=== PATIENT | female | born 1970 | race African-American/Black ===

== ENCOUNTER 2018-10-06 13:50 | Inpatient (IN) | payer OTHER ==
[2018-10-06 13:55] VITALS: BMI 26.6
--- NOTE | 2018-10-06 16:23 | HP ---
CIWA Score Nausea/Vomitin-No Nausea/No Vomiting Muscle Tremors: 4-Moderate,w/Arms Extend Anxiety: 4-Mod. Anxious/Guarded Agitation: 4-Moderately Restless Paroxysmal Sweats: 3 Orientation: 0-Oriented Tacttile Disturbances: 0-None Auditory Disturbances: 0-None Visual Disturbances: 0-None Headache: 0-None Present CIWA-Ar Total Score: 15 - Admission Criteria [facility]ASAS Guidelines: Admission for Medically Managed Detox: Requires at least one of the followin. CIWA greater than 12 2. Seizures within the past 24 hours 3. Delirium tremens within the past 24 hours 4. Hallucinations within the past 24 hours 5. Acute intervention needed for co occurring medical disorder 6. Acute intervention needed for co occurring psychiatric disorder 7. Severe withdrawal that cannot be handled at a lower level of care (continued vomiting, continued diarrhea, abnormal vital signs) requiring intravenous medication and/or fluids 8. Admission ROS S - [facility] Chief Complaint: I need help to stop drinking. Allergies/Adverse Reactions: Allergies Allergy/AdvReac Type Severity Reaction Status Date / Time shellfish derived Allergy Severe Swelling Verified 10/06/18 16:10 History of Present Illness: pt is a 48yr old female with a history of alcohol seeking detox for treatment. pt was sober from 2010 for three years. Pt is now ready to get detox and get clean. Exam Limitations: Physical Impairment (uses wheelchair for ambulating. pt has difficulty with walking.pt has her own wheelchair.) - Ebola screening Have you traveled outside of the country in the last 21 days: No (N) Have you had contact with anyone from an Ebola affected area: No Have you been sick,other than usual withdrawal symptoms: No Do you have a fever: No - Review of Systems Constitutional: Chills, Diaphoresis, Night Sweats, Changes in sleep EENT: reports: Tearing, Nose Congestion, Sinus Pressure Respiratory: reports: No Symptoms reported Cardiac: reports: Syncope GI: reports: Constipated, Poor Appetite, Poor Fluid Intake, Indigestion : reports: No Symptoms Reported Musculoskeletal: reports: Back Pain, Joint Pain, Muscle Pain Integumentary: reports: Flushing, Sweating Neuro: reports: Headache, Tingling, Tremors Endocrine: reports: Excessive Sweating, Flushing, Intolerance to Cold, Intolerance to Heat Hematology: reports: No Symptoms Reported Psychiatric: reports: Judgement Intact, Mood/Affect Appropiate, Orientated x3, Agitated, Anxious Other Systems: Reviewed and Negative Patient History - Patient Medical History Hx Anemia: No Hx Asthma: No Hx Chronic Obstructive Pulmonary Disease (COPD): No Hx Cancer: No Hx Cardiac Disorders: No Hx Congestive Heart Failure: No Hx Hypertension: No Hx Hypercholesterolemia: No Hx Pacemaker: No HX Cerebrovascular Accident: No Hx Seizures: No Hx Dementia: No Hx Diabetes: No Hx Gastrointestinal Disorders: Yes (acid reflux.) Hx Liver Disease: No Hx Genitourinary Disorders: No Hx Sexually Transmitted Disorders: No Hx Renal Disease (ESRD): No Hx Thyroid Disease: No Hx Human Immunodeficiency Virus (HIV): No Hx Hepatitis C: No Hx Depression: No Hx Suicide Attempt: No (denies) Hx Bipolar Disorder: No Hx Schizophrenia: No - Patient Surgical History Past Surgical History: Yes Hx Section: Yes (x1) - PPD History Previous Implant?: Yes Documented Results: Negative w/o proof Implanted On Prior [facility] Admission?: No PPD to be Administered?: Yes - Reproductive History Patient is a Female of Child Bearing Age (11 -55 yrs old): Yes Patient : No - Smoking Cessation Smoking history: Current every day smoker Have you smoked in the past 12 months: Yes Aproximately how many cigarettes per day: 4 Hx Chewing Tobacco Use: No Initiated information on smoking cessation: Yes 'Breaking Loose' booklet given: 10/06/18 - Substance & Tx. History Hx Alcohol Use: Yes Hx Substance Use: Yes Substance Use Type: Alcohol, Cocaine Hx Substance Use Treatment: Yes (last detox <5yrsa ago) - Substances Abused Alcohol Route: Oral Frequency: Daily Amount used: 7 cans beer/ fifth of liquor Age of first use: 20 Date of Last Use: 10/06/18 Crack Route: Smoking Frequency: Daily Amount used: 4 bags Age of first use: 46 Date of Last Use: 10/05/18 Family Disease History - Family Disease History Family History: Denies Admission Physical Exam [facility] - Vital Signs Vital Signs: Vital Signs - 24 hr 10/06/18 13:51 Temperature 98.2 F Pulse Rate 110 H Respiratory 20 Rate Blood Pressure 139/76 - Physical General Appearance: Yes: Appropriately Dressed, Moderate Distress, Tremorous, Irritable, Sweating, Anxious HEENTM: Yes: Hearing grossly Normal, Normal Voice, Nasal Congestion, Rhinorrhea Respiratory: Yes: Lungs Clear, Normal Breath Sounds, No Respiratory Distress Neck: Yes: No masses,lesions,Nodules Breast: Yes: Within Normal Limits Cardiology: Yes: Regular Rhythm, Regular Rate, S1, S2 Abdominal: Yes: Normal Bowel Sounds, Non Tender, Soft Genitourinary: Yes: Within Normal Limits Back: Yes: Normal Inspection Musculoskeletal: Yes: full range of Motion Extremities: Yes: Normal Capillary Refill, Normal Inspection, Non-Tender, Tremors Neurological: Yes: Fully Oriented, Alert, Normal Response Integumentary: Yes: Normal Color, Diaphoresis Lymphatic: Yes: Within Normal Limits - Diagnostic (1) Alcohol dependence with uncomplicated withdrawal Current Visit: Yes Status: Chronic (2) Crack cocaine use Current Visit: Yes Status: Chronic (3) Chronic knee pain Current Visit: Yes Status: Chronic Qualifiers: Laterality: bilateral Qualified Code(s): M25.561 - Pain in right knee; M25.562 - Pain in left knee; G89.29 - Other chronic pain Cleared for Admission [facility] - Detox or Rehab [facility] Level of Care: Medically Managed Detox Regimen/Protocol: Librium [facility] Breath Alcohol Content Breath Alcohol Content: 0 Urine Pregancy Test - Result Urine Test Results: Negative- NO Line Present Urine Drug Screen - Results Drug Screen Negative: No Urine Drug Screen Results: PRASANTH-Cocaine
[2018-10-06] MEDS ORDERED: guaiFENesin/D-METHORPHAN HB 10 ML UNIT-DOSE CUPS PO PRN (16:32)
[2018-10-06] MEDS ORDERED: ACETAMINOPHEN 325 MG TABLET (FP) PO PRN (16:32)
[2018-10-06] MEDS ORDERED: chlordiazePOXIDE HCL 25 MG CAPSULE PO ONE (16:32)
[2018-10-06] MEDS ORDERED: LOPERAMIDE HCL 2 MG CAPSULE PO PRN (16:32)
[2018-10-06] MEDS ORDERED: MENTHOL/PHENOL 1 EACH UD MM PRN (16:32)
[2018-10-06] MEDS ORDERED: P-EPHED 60MG/TRIPROLIDI 2.5MG TABLET PO PRN (16:32)
[2018-10-06] MEDS ORDERED: IBUPROFEN 400 MG TABLET (FP) PO PRN (16:32)
[2018-10-06] MEDS ORDERED: hydrOXYzine PAMOATE 50 MG CAPSULE (FP) PO PRN (16:32)
[2018-10-06] MEDS ORDERED: chlordiazePOXIDE HCL 25 MG CAPSULE PO PRN (16:32)
[2018-10-06] MEDS ORDERED: MAG HYDROX/AL HYDROX/SIMETH 30 ML UNIT-DOSE CUP PO PRN (16:32)
[2018-10-06] MEDS ORDERED: MAGNESIUM HYDROX 2400MG/30ML ORAL SUSPENSION 30 ML CUP PO PRN (16:32)
[2018-10-06] MEDS ORDERED: MAGNESIUM CITRATE 300 ML BOTTLE PO PRN (16:32)
[2018-10-06] MEDS: FLUTICASONE PROP 0.05% 16 GM NASAL SPRAY NS SCH (17:43)
[2018-10-06] MEDS ORDERED: MELATONIN 5 MG TABLETS PO PRN (22:00)
[2018-10-06] MEDS: THIAMINE HCL 100 MG TABLET (FP) PO SCH (23:38)
[2018-10-06] MEDS: chlordiazePOXIDE HCL 25 MG CAPSULE PO SCH (23:38)
[2018-10-07] MEDS: chlordiazePOXIDE HCL 25 MG CAPSULE PO SCH ×4 (05:43→22:59)
[2018-10-07] MEDS: PANTOPRAZOLE 40 MG TABLET (FP) PO SCH (10:25)
[2018-10-07] MEDS: LORATADINE 10 MG TABLET PO SCH (10:25)
[2018-10-07] MEDS: FLUTICASONE PROP 0.05% 16 GM NASAL SPRAY NS SCH (10:25)
[2018-10-07] MEDS: PRENATAL VITAMINS W/ FOLIC ACID TABLET (FP) PO SCH (10:25)
[2018-10-07] MEDS: NICOTINE POLACRILEX 4 MG GUM BUC PRN (10:27)
[2018-10-07 11:01] LABS: ALBUMIN 3.7 g/dl (3.4-5.0); ALK PHOS 114 U/L (45-117); ANION GAP 10 MMOL/L (8-16); BILIRUBIN,TOTAL 0.4 mg/dL (0.2-1); BLOOD UREA NITROGEN 11 mg/dL (7-18); CALCIUM 9.2 mg/dL (8.5-10.1); CHLORIDE 103 mmol/L (98-107); CO2 27 mmol/L (21-32); CREATININE 0.8 mg/dL (0.55-1.3); GLUCOSE,RANDOM 91 mg/dL (74-106); POTASSIUM 3.9 mmol/L (3.5-5.1); SGOT/AST 25 U/L (15-37); SGPT/ALT 22 U/L (13-61); SODIUM 139 mmol/L (136-145); TOT PROT 7.4 g/dl (6.4-8.2)
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
--- NOTE | 2018-10-07 12:39 | PN ---
S CIWA - CIWA Score Nausea/Vomitin-No Nausea/No Vomiting Muscle Tremors: 4-Moderate,w/Arms Extend Anxiety: 3 Agitation: 3 Paroxysmal Sweats: 3 Orientation: 0-Oriented Tacttile Disturbances: 0-None Auditory Disturbances: 0-None Visual Disturbances: 0-None Headache: 1-Very Mild CIWA-Ar Total Score: 14 S Progress Note (SOAP) Subjective: my sinus are bothering me greenish/yellowish when i blow my nose sweats agitation body aches restless Objective: 10/07/18 12:39 Vital Signs Temperature 98.2 F 10/07/18 09:30 Pulse Rate 99 H 10/07/18 09:30 Respiratory Rate 18 10/07/18 09:30 Blood Pressure 150/89 10/07/18 09:30 O2 Sat by Pulse Oximetry (%) Laboratory Tests 10/07/18 07:00 Sodium 139 Potassium 3.9 Chloride 103 Carbon Dioxide 27 Anion Gap 10 BUN 11 Creatinine 0.8 Creat Clearance w eGFR > 60 Random Glucose 91 Calcium 9.2 Total Bilirubin 0.4 AST 25 ALT 22 Alkaline Phosphatase 114 Total Protein 7.4 Albumin 3.7 rest of labs pending aaox3 ambulating no acute distress tender around sinus area. Assessment: 10/07/18 12:42 withdrawal sx Plan: continue detox increase fluids amoxicillin abx ordered continue with flonase
[2018-10-07 12:48] LABS: HEMATOCRIT 36.4 % (32.4-45.2); HEMOGLOBIN 11.7 GM/dL (10.7-15.3); MCH 24.5 pg (25.7-33.7); MCHC 32.1 g/dl (32.0-36.0); MEAN CELL VOLUME 76.2 fl (80-96); MEAN PLT VOLUME 8.7 fl (7.5-11.1); PLATELET COUNT 201 K/MM3 (134-434); RBC 4.78 M/mm3 (3.60-5.2); RDW 15.4 % (11.6-15.6); WHITE BLOOD COUNT 5.4 K/mm3 (4.0-10.0)
[2018-10-07] MEDS ORDERED: AMOX TR/POT CLAV 500MG/125MG TABLETS (FP) PO SCH (17:30)
[2018-10-07] MEDS: AMOX TR/POT CLAV 875MG/125MG TABLETS (FP) PO SCH (17:56)
[2018-10-07] MEDS ORDERED: QUEtiapine FUMARATE 50 MG TABLET PO SCH (22:00)
[2018-10-07] MEDS: THIAMINE HCL 100 MG TABLET (FP) PO SCH (22:59)
[2018-10-08] MEDS: chlordiazePOXIDE HCL 25 MG CAPSULE PO SCH ×3 (06:07→17:51)
[2018-10-08] MEDS: AMOX TR/POT CLAV 875MG/125MG TABLETS (FP) PO SCH ×2 (09:00→17:51)
[2018-10-08] MEDS: PRENATAL VITAMINS W/ FOLIC ACID TABLET (FP) PO SCH (10:44)
[2018-10-08] MEDS: LORATADINE 10 MG TABLET PO SCH (10:44)
[2018-10-08] MEDS: PANTOPRAZOLE 40 MG TABLET (FP) PO SCH (10:44)
[2018-10-08] MEDS: FLUTICASONE PROP 0.05% 16 GM NASAL SPRAY NS SCH (10:44)
[2018-10-08] MEDS: NICOTINE POLACRILEX 4 MG GUM BUC PRN (10:46)
--- NOTE | 2018-10-08 12:17 | PN ---
[facility] CIWA - CIWA Score Nausea/Vomitin-No Nausea/No Vomiting Muscle Tremors: 3 Anxiety: 3 Agitation: 3 Paroxysmal Sweats: 2 Orientation: 0-Oriented Tacttile Disturbances: 0-None Auditory Disturbances: 0-None Visual Disturbances: 0-None Headache: 0-None Present CIWA-Ar Total Score: 11 S Progress Note (SOAP) Subjective: agitation sweats interrupted sleep body aches Objective: 10/08/18 12:17 Vital Signs Temperature 98.2 F 10/08/18 10:46 Pulse Rate 108 H 10/08/18 10:46 Respiratory Rate 20 10/08/18 10:46 Blood Pressure 157/92 10/08/18 10:46 O2 Sat by Pulse Oximetry (%) Laboratory Tests 10/07/18 10/07/18 10/07/18 07:00 07:00 07:00 WBC 5.4 RBC 4.78 Hgb 11.7 Hct 36.4 MCV 76.2 L MCH 24.5 L MCHC 32.1 RDW 15.4 Plt Count 201 MPV 8.7 Sodium 139 Potassium 3.9 Chloride 103 Carbon Dioxide 27 Anion Gap 10 BUN 11 Creatinine 0.8 Creat Clearance w eGFR > 60 Random Glucose 91 Calcium 9.2 Total Bilirubin 0.4 AST 25 ALT 22 Alkaline Phosphatase 114 Total Protein 7.4 Albumin 3.7 RPR Titer Nonreactive aaox3 ambulating no acute distress Assessment: 10/08/18 12:17 withdrawal sx Plan: continue detox increase fluids
--- NOTE | 2018-10-08 17:02 | PN ---
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 Patient encouraged to follow up with outpatient psychiatrist.
[2018-10-08] MEDS: chlordiazePOXIDE 5 MG CAPSULE PO SCH (22:47)
[2018-10-08] MEDS: THIAMINE HCL 100 MG TABLET (FP) PO SCH (23:01)
[2018-10-09] MEDS: chlordiazePOXIDE 5 MG CAPSULE PO SCH ×2 (05:44→11:47)
[2018-10-09] MEDS: NICOTINE POLACRILEX 4 MG GUM BUC PRN (07:01)
[2018-10-09] MEDS: AMOX TR/POT CLAV 875MG/125MG TABLETS (FP) PO SCH (07:40)
[2018-10-09 07:55] VITALS: TEMP 98.2
[2018-10-09 09:40] VITALS: BP 139/92; PULSE 105
--- NOTE | 2018-10-09 10:00 | DS ---
[facility] Detox Discharge Summary Admission Date: 10/06/18 Discharge Date: 10/09/18 - History Present History: Alcohol Dependence Additional Comments: 48 years old female admitted on 10/06/18 for alcohol withdrawal stabilization reported feeling better able to tolerate alcohol withdrawal sx today and aftercare at [facility] patient preferred continuing care at the [facility] patient is alert oriented x 3 no acute distress denies suicidal no homocidal ideation no self destructive behavior ambulant with wheelchair transportation was called Pertinent Past History: continue Augmentin for sinusitis encourage continue claritin and pepcid - Physical Exam Results Vital Signs: Vital Signs Temperature 98.2 F 10/09/18 09:40 Pulse Rate 105 H 10/09/18 09:40 Respiratory Rate 16 10/09/18 09:40 Blood Pressure 139/92 10/09/18 09:40 O2 Sat by Pulse Oximetry (%) Pertinent Admission Physical Exam Findings: alcohol withdrawal sx Laboratory Last Values WBC 5.4 K/mm3 (4.0-10.0) 10/07/18 07:00 RBC 4.78 M/mm3 (3.60-5.2) 10/07/18 07:00 Hgb 11.7 GM/dL (10.7-15.3) 10/07/18 07:00 Hct 36.4 % (32.4-45.2) 10/07/18 07:00 MCV 76.2 fl (80-96) L 10/07/18 07:00 MCH 24.5 pg (25.7-33.7) L 10/07/18 07:00 MCHC 32.1 g/dl (32.0-36.0) 10/07/18 07:00 RDW 15.4 % (11.6-15.6) 10/07/18 07:00 Plt Count 201 K/MM3 (134-434) 10/07/18 07:00 MPV 8.7 fl (7.5-11.1) 10/07/18 07:00 Sodium 139 mmol/L (136-145) 10/07/18 07:00 Potassium 3.9 mmol/L (3.5-5.1) 10/07/18 07:00 Chloride 103 mmol/L (98-107) 10/07/18 07:00 Carbon Dioxide 27 mmol/L (21-32) 10/07/18 07:00 Anion Gap 10 MMOL/L (8-16) 10/07/18 07:00 BUN 11 mg/dL (7-18) 10/07/18 07:00 Creatinine 0.8 mg/dL (0.55-1.3) 10/07/18 07:00 Creat Clearance w eGFR > 60 (>60) 10/07/18 07:00 Random Glucose 91 mg/dL (74-106) 10/07/18 07:00 Calcium 9.2 mg/dL (8.5-10.1) 10/07/18 07:00 Total Bilirubin 0.4 mg/dL (0.2-1) 10/07/18 07:00 AST 25 U/L (15-37) 10/07/18 07:00 ALT 22 U/L (13-61) 10/07/18 07:00 Alkaline Phosphatase 114 U/L (45-117) 10/07/18 07:00 Total Protein 7.4 g/dl (6.4-8.2) 10/07/18 07:00 Albumin 3.7 g/dl (3.4-5.0) 10/07/18 07:00 RPR Titer Nonreactive (NONREACTIVE) 10/07/18 07:00 lab noted - Treatment Hospital Course: Detox Protocol Followed, Detoxed Safely, Responded well, Discharged Condition Good, Rehab Referral Accepted Patient has Accepted a Rehab Referral to: [facility] - Medication Discharge Medications: Ambulatory Orders Famotidine [Pepcid -] 20 mg PO DAILY 10/06/18 Loratadine [Claritin -] 10 mg PO DAILY 10/06/18 Amox-Tr/K Cl [Augmentin 875-125mg Tablet -] 1 tab PO BID@0800,1730 #10 tablet Fluticasone Prop 0.05% Nasal [Flonase -] 1 - 2 spray NS BID #1 spray 10/09/18 - Diagnosis (1) Alcohol dependence with uncomplicated withdrawal Current Visit: Yes Status: Acute (2) Sinusitis Current Visit: Yes Status: Acute Qualifiers: Sinusitis location: maxillary Chronicity: subacute Qualified Code(s): J01.00 - Acute maxillary sinusitis, unspecified - AMA Did Patient Leave Against Medical Advice: No
[2018-10-09] MEDS: PANTOPRAZOLE 40 MG TABLET (FP) PO SCH (11:47)
[2018-10-09] MEDS: FLUTICASONE PROP 0.05% 16 GM NASAL SPRAY NS SCH (11:47)
[2018-10-09] MEDS: LORATADINE 10 MG TABLET PO SCH (11:47)
[2018-10-09] MEDS: PRENATAL VITAMINS W/ FOLIC ACID TABLET (FP) PO SCH (11:47)
[2018-10-09] MEDS ORDERED: chlordiazePOXIDE HCL 10 MG CAPSULE PO SCH (23:00)
== END 2018-10-09 11:12 | disposition home or self-care (01) | DRG 774 ==
LOC: YASAS 13:50 → Y6N 16:34
PROC: HZ2ZZZZ Detoxification Services for Substance Abuse Treatment (ICD-10-PCS; principal; 2018-10-06)
DX: F10.230 Alcohol dependence with withdrawal, uncomplicated (principal); F14.20 Cocaine dependence, uncomplicated; F17.210 Nicotine dependence, cigarettes, uncomplicated; F31.9 Bipolar disorder, unspecified; J01.00 Acute maxillary sinusitis, unspecified; K21.9 Gastro-esophageal reflux disease without esophagitis; M25.561 Pain in right knee; M25.562 Pain in left knee; G89.29 Other chronic pain; Z91.5 Personal history of self-harm; Z99.3 Dependence on wheelchair; Z59.0 Homelessness
CPT/HCPCS: 36415; 80053; 85027; 86593